=== PATIENT | female | born 1980 ===

== ENCOUNTER 2018-08-23 15:13 | Emergency (ER) | payer OTHER ==
[2018-08-23 15:19] VITALS: BP 115/68; PULSE 101; RESP 18; TEMP 98.7; O2SAT 98
--- NOTE | 2018-08-23 16:01 | ED PDOC ---
HPI: Female Pain Time Seen by Provider: 08/23/18 15:27 Chief Complaint (Nursing): Abdominal Pain Chief Complaint (Provider): lower abdominal pain History Per: Patient History/Exam Limitations: no limitations Onset/Duration Of Symptoms: Hrs (today) Current Symptoms Are (Timing): Still Present Associated Symptoms: Back Pain (upper), Urinary Symptoms (urgency ). denies: Fever, Chills, Nausea, Vomiting Additional Complaint(s): Farida Pedersen is a 37 year old female, with a past medical history of diabetes, who presents to the emergency department complaining of lower abdominal pain associated with urgency onset today. Patient also reports noticing some blood in urine which prompted concern for ED visit. She does reports an upper back pain but denies any nausea, vomit, fever or chills. No further medical complaints. PMD: Odilia Xiong Past Medical History Reviewed: Historical Data, Nursing Documentation, Vital Signs Vital Signs: Last Vital Signs Temp 98.7 F 08/23/18 15:18 Pulse 101 H 08/23/18 15:18 Resp 18 08/23/18 15:18 BP 115/68 08/23/18 15:18 Pulse Ox 98 08/23/18 15:18 - Medical History PMH: Diabetes, Migraine - Surgical History Surgical History: No Surg Hx - Family History Family History: States: Unknown Family Hx - Immunization History Hx Tetanus Toxoid Vaccination: No Hx Influenza Vaccination: Yes Hx Pneumococcal Vaccination: No - Home Medications Home Medications: Ambulatory Orders Medication Instructions Recorded Ciprofloxacin [Cipro] 1 tab PO BID #10 tab 01/14/14 Metronidazole [Flagyl] 500 mg PO BID #10 tab 01/14/14 Motrin 800 mg PO PRN 01/14/14 Ondansetron ODT [Zofran ODT] 1 odt PO BID PRN #6 odt 01/14/14 Ciprofloxacin [Cipro] 500 mg PO BID #10 tab 08/23/18 - Allergies Allergies/Adverse Reactions: Allergies Allergy/AdvReac Type Severity Reaction Status Date / Time No Known Allergies Allergy Unverified 01/14/14 17:32 Review of Systems ROS Statement: Except As Marked, All Systems Reviewed And Found Negative Constitutional: Negative for: Fever, Chills Gastrointestinal: Positive for: Abdominal Pain (lower). Negative for: Nausea, Vomiting Genitourinary Female: Positive for: Hematuria, Other (urgency) Musculoskeletal: Positive for: Back Pain (upper ) Physical Exam - Reviewed Nursing Documentation Reviewed: Yes Vital Signs Reviewed: Yes - Physical Exam Appears: Positive for: No Acute Distress Head Exam: Positive for: ATRAUMATIC, NORMOCEPHALIC Skin: Positive for: Normal Color, Warm, Dry Eye Exam: Positive for: Normal appearance Neck: Positive for: Painless ROM Cardiovascular/Chest: Positive for: Regular Rate, Rhythm. Negative for: Murmur Respiratory: Positive for: Normal Breath Sounds. Negative for: Respiratory Distress Gastrointestinal/Abdominal: Positive for: Normal Exam, Soft. Negative for: Tenderness, Guarding, Rebound Back: Positive for: Normal Inspection. Negative for: L CVA Tenderness, R CVA Tenderness, Vertebral Tenderness Extremity: Positive for: Normal ROM (upper and lower extremities). Negative for: Deformity, Swelling Neurologic/Psych: Positive for: Alert, Oriented, Gait (steady) - ECG O2 Sat by Pulse Oximetry: 98 (RA) Pulse Ox Interpretation: Normal Medical Decision Making Medical Decision Making: Time: 15:27 Initial impression: UTI Initial Plan: --Urine --Urine dipstick ------- Scribe Attestation: Documented by Renard Gallardo, acting as a scribe for Maria Teresa Carlton PA-C Provider Scribe Attestation: All medical record entries made by the Scribe were at my direction and personally dictated by me. I have reviewed the chart and agree that the record accurately reflects my personal performance of the history, physical exam, medical decision making, and the department course for this patient. I have also personally directed, reviewed, and agree with the discharge instructions and disposition. Disposition - Clinical Impression Clinical Impression: UTI (urinary tract infection) - Patient ED Disposition Is Patient to be Admitted: No - Disposition Referrals: Odilia Xiong [Primary Care Provider] - Disposition: Routine/Home Disposition Time: 16:17 Condition: STABLE Prescriptions: Ciprofloxacin [Cipro] 500 mg PO BID #10 tab Instructions: Urinary Tract Infection, Adult (DC) Forms: [employer] (Greenlandic) Print Language: MALAYSIAN
== END 2018-08-23 16:25 | disposition home or self-care (01) ==
LOC: SUPCPDRO 15:13 → H.ER 15:13
DX: N39.0 Urinary tract infection, site not specified (principal)